=== PATIENT | male | born 1990 | race Caucasian/White ===

== ENCOUNTER 2017-06-10 06:02 | Emergency (ER) | payer SELFPAY ==
[~2017-06-10] VITALS: Ht 198.1 cm; Wt 93.3 kg
[2017-06-10 06:03] VITALS: BP 148/98
[2017-06-10] MEDS ORDERED: CEPHALEXIN 500 MG CAPSULE PO ONE (06:30)
[2017-06-10] MEDS ORDERED: KETOROLAC 30 MG/1 ML IM ONE (06:30)
[2017-06-10] MEDS ORDERED: KETOROLAC 60 MG/2 ML IM ONE (06:30)
[2017-06-10] MEDS ORDERED: KETOROLAC 30 MG/1 ML ONE (06:35)
[2017-06-10] MEDS ORDERED: CEPHALEXIN 500 MG CAPSULE ONE (06:35)
== END 2017-06-10 08:00 | disposition home or self-care (01) ==
LOC: ED 07:32
DX: L02.414 Cutaneous abscess of left upper limb (principal)
CPT/HCPCS: 93971; 96372; 99284; J1885

== ENCOUNTER 2018-09-02 10:40 | Emergency (ER) | payer MEDICAID ==
[~2018-09-02] VITALS: Ht 198.1 cm; Wt 97.2 kg
[2018-09-02 12:09] LABS: BASOPHILS # (AUTO) 0.01 x10^3/uL (0-0.1); BASOPHILS % (AUTO) 0 % (0-1); EOSINOPHILS # (AUTO) 0.27 x10^3/uL (0-0.4); EOSINOPHILS % (AUTO) 4 % (1-7); LYMPHOCYTES # (AUTO) 1.35 x10^3/uL (1-3.4); LYMPHOCYTES % (AUTO) 17 % (22-44); MD NO; MEAN CORPUSCULAR HEMOGLOBIN 30.8 pg (27.5-34.5); MEAN CORPUSCULAR HGB CONC 34.1 g/dL (33.2-36.2); MEAN CORPUSCULAR VOLUME 90.1 fL (81-97); MEAN PLATELET VOLUME 8.9 fL (7.4-10.4); MONOCYTES # (AUTO) 0.68 x10^3/uL (0.2-0.8); MONOCYTES % (AUTO) 9 % (2-9); NEUTROPHILS # (AUTO) 5.48 x10^3/uL (1.8-6.8); NEUTROPHILS % (AUTO) 70 % (42-75); PLATELET COUNT 262 x10^3/uL (130-400); RED BLOOD COUNT 4.98 x10^6/uL (4.38-5.82); RED CELL DISTRIBUTION WIDTH 14.1 % (9.4-14.8)
[2018-09-02 12:15] LABS: ALBUMIN 4.1 g/dL (3.4-5.0); ANION GAP 7 mmol/L (5-15); CALCIUM 8.8 mg/dL (8.5-10.1); CHLORIDE 105 mmol/L (98-107); CREATININE 0.98 mg/dL (0.7-1.3)
[2018-09-02 13:39] VITALS: BP 152/102
== END 2018-09-02 13:41 | disposition home or self-care (01) ==
LOC: ED 13:07
DX: L03.115 Cellulitis of right lower limb (principal); L24.5 Irritant contact dermatitis due to other chemical products; F17.200 Nicotine dependence, unspecified, uncomplicated
CPT/HCPCS: 36415; 80048; 82040; 85025; 99284